=== PATIENT | male | born 1940 | race Caucasian/White ===

== ENCOUNTER 2017-08-23 12:11 | Inpatient (IN) ==
[2017-08-23] MEDS ORDERED: ASPIRIN PO STA (12:16)
--- NOTE | 2017-08-23 12:27 | EKG Report ---
Test Performed on : 08/23/2017 12:24:19 PM Test Reason : CHEST PAIN Blood Pressure : / mmHG Vent. Rate : 111 BPM Atrial Rate : 113 BPM P-R Int : 000 ms QRS Dur : 132 ms QT Int : 398 ms P-R-T Axes : 000 -63 -01 degrees QTc Int : 541 ms Atrial fibrillation. with rapid ventricular response. with premature ventricular or aberrantly condu cted complexes. Right bundle branch block Left anterior fascicular block Bifascicular block Minimal voltage criteria for LVH, may be normal variant Abnormal ECG When compared with ECG of 26-JUL-2015 12:54, Atrial fibrillation. has replaced Sinus rhythm. Vent. rate has increased BY 48 BPM T wave inversion now evident in Anterior leads Unconfirmed Result
--- NOTE | 2017-08-23 12:30 | PROVIDER DOCUMENTATION ---
HPI-General Adult - General Chief Complaint: Shortness of Breath Stated Complaint: SOB,NOT SLEEPING BECAUSE OF AFIB Time Seen by Provider: 08/23/17 12:27 Source: patient Allergies/Adverse Reactions: Patient Allergies Allergy/AdvReac Type Severity Reaction Status Date / Time No Known Allergies Allergy Verified 08/23/17 12:24 Home Medications: Home Medication List Medication Instructions Recorded Confirmed Last Taken Type ATORVAstatin [Lipitor] 40 mg 08/23/17 Unknown History Allopurinol 08/23/17 Unknown History Aspirin [Aspirin EC] 81 mg 08/23/17 Unknown History Celecoxib [Celebrex] 08/23/17 Unknown History Docusate Sodium [Colace] 100 mg 08/23/17 Unknown History Gabapentin 08/23/17 Unknown History Lisinopril/Hydrochlorothiazide 1 dose 08/23/17 Unknown History [Lisinopril-Hctz 20-25 mg Tab] Metoprolol Succinate E.r. [Toprol 50 mg 08/23/17 Unknown History Xl] Metoprolol Succinate E.r. [Toprol 100 mg 08/23/17 Unknown History Xl] Warfarin [Coumadin] 08/23/17 Unknown History - History of Present Illness -Gen Adult Nature of Presenting Problems: Pt c/o increasing SOB and increased heart rate. 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 Location of Pain/Injury: reports: none Pain Radiation: reports: no radiation Quality of Pain: reports: none Severity: reports: moderate Onset/Duration: reports: gradual, 3 days ago Timing: reports: still present, getting worse Context/Activities at Onset: reports: light activity Modifying Factors: improves with: nothing Associated Symptoms: reports: shortness of breath Similar Symptoms Previously?: Yes Recently seen or treated by another doctor?: Yes Review of Systems - Adult - REVIEW OF SYSTEMS - ADULT Constitutional: reports: other (insomnia) Eyes: reports: no symptoms reported Ears, Nose, Mouth & Throat: reports: no symptoms reported Cardiovascular: reports: edema, irregular heart rate. denies: chest pain Respiratory: reports: dyspnea on exertion, shortness of breath. denies: cough, wheezing Gastrointestinal: reports: no symptoms reported Genitourinary: reports: no symptoms reported Psychiatric: reports: no symptoms reported Past History - Adult - PAST MEDICAL HISTORY-ADULT Review of Records: reports: Old Records Reviewed, Nursing Assessment Review, Medications Reviewed Cardiovascular: reports: cardiac disease, A-Fib Physical Exam-General - PHYSICAL EXAM-ADULT Initial Vital Signs Reviewed: Yes - CONSTITUTIONAL General Appearance: appears well, alert, mild distress - EYES Eyes: PERRL/EOMI, pink conjunctivae - HEAD, EARS, NOSE, MOUTH & THROAT HENMT: normocephalic/atraumatic, moist mucous membranes - NECK Neck: full range of motion, supple. negative: carotid bruit - RESPIRATORY Respiratory: lungs clear, normal breath sounds, no accessory muscle use. negative: respiratory distress, decreased breath sounds, accessory muscle use, crackles, rales, rhonchi, stridor, wheezing - CARDIOVASCULAR Cardiovascular: normal peripheral pulses, tachycardia, irregularly irregular, other (pedal edema 2+ pitting) - GASTROINTESTINAL (ABDOMEN) Abdominal Exam: normal bowel sounds, non tender, soft - LYMPHATIC Lymphatic: no adenopathy - MUSCULOSKELETAL Back Exam: normal inspection Extremity: normal range of motion, non-tender, normal gait, normal inspection, pedal edema, other (right leg edema d/t previous trauma right hand deformity). negative: calf tenderness Peripheral Pulses: radial (R): 2+, radial (L): 2+, dorsalis-pedis (R): 1+, dorsalis-pedis (L): 1+ - SKIN Integumentary: normal color, warm/dry - NEUROLOGIC Neurologic: grossly normal - PSYCHIATRIC Psych/Mental Status: normal mood/affect Progress - PLAN OF CARE/RESULTS Progress/Plan/Lab Results: Vital Signs - 8 hr 08/23/17 12:17 Temperature 97.8 F Pulse Rate 116 H Respiratory Rate 26 H Blood Pressure 138/113 O2 Sat by Pulse Oximetry 97 Orders Category Date Time Status Cardiac Monitoring DIRECTED Care 08/23/17 12:16 Active Saline Loc NOW Care 08/23/17 12:16 Active CHEST-2 VIEWS [RAD] Stat Exams 08/23/17 12:16 Ordered CBC WITH ELECTRONIC DIFF [HEME] Stat Lab 08/23/17 12:16 Ordered CK PROFILE [SP CHEM] Stat Lab 08/23/17 12:16 Ordered COMPREHENSIVE METABOLIC PANEL [CHEM] Stat Lab 08/23/17 12:16 Ordered MAGNESIUM [CHEM] Stat Lab 08/23/17 12:16 Ordered PRO B-NATRIURETIC PEPTIDE Stat Lab 08/23/17 12:16 Ordered PROTIME WITH INR PL [COAG] Stat Lab 08/23/17 12:[address] [COAG] Stat Lab 08/23/17 12:16 Ordered TROPONIN T Stat Lab 08/23/17 12:16 Ordered Aspirin Med 08/23/17 12:16 Discontinued 325 mg PO STAT STA EKG [EKG] Stat Ther 08/23/17 12:16 Draft Result Diagrams: 08/23/17 12:32 08/23/17 12:32 - CONSULTS/PCP/HOSPITALIST Notification #1 *Consult/PCP/Hospitalist*: agustina Time Discussed: 15:22 Consult Disposition: Will see in ED Departure - Departure Date of Disposition Decision: 08/23/17 Time of Disposition Decision: 15:14 DIAGNOSIS: Shortness of breath A-fib Qualifiers: Atrial fibrillation type: chronic Qualified Code(s): I48.2 - Chronic atrial fibrillation CHF (congestive heart failure) Qualifiers: Congestive heart failure type: unspecified congestive heart failure type Congestive heart failure chronicity: unspecified congestive heart failure chronicity Qualified Code(s): I50.9 - Heart failure, unspecified Disposition: ADMITTED INPATIENT 09 Certified Medical Emergency: Emergent Condition: Good Referrals and Follow-Ups: Ritchie Montez MD [Primary Care Provider] - - Critical Care Note This patient required my direct & personal management of CC.: No Attestation - Physician/ BRADEN Attestation Patient care was provided by Advanced Practice Provider:: Yes Advanced Practice Provider:: Kinsey Ferraro Advanced Practice Provider documentation review:: The Mid-level provider documentation, treatment plan and medical decision making was reviewed by the physician who agrees with all treatment and medical decision making by the [facility]. The physician spent face to face time with patient:: Yes Advanced Practice Provider documentation review:: Supervising physician onsite and consulted in the evaluation and care of this patient. The physician did have a face to face encounter with the patient.
[2017-08-23 12:35] LABS: MANUAL DIFF NEEDED? NO
[2017-08-23 12:37] LABS: BASO% 0.4 % (0.0-0.8); EOS% 1.4 % (0.0-10.0); HEMATOCRIT 38.3 % (42.0-52.0); HEMOGLOBIN 12.6 g/dL (14.0-18.0); IMM GRAN# 0.01 X1000 (0.0-0.04); IMM GRAN% 0.1 % (0.0-0.5); LYMPH# 1.82 X1000 (1.2-3.4); LYMPH% 24.6 % (20.5-51.1); MCH 30.7 PG (27-31); MCHC 32.9 g/dL (33-37); MCV 93.2 FL (81-99); MONO# 0.71 X1000 (0.11-0.59); MONO% 9.6 % (1.7-9.3); MPV 10.7 FL (7.4-10.4); NEUT% 63.9 % (42.2-75.2); PLT 189 X1000 (130-400); RBC 4.11 XMIL (4.7-6.1)
[2017-08-23 12:53] LABS: ALBUMIN 4.2 g/dL (3.5-5.0); CALCIUM 9.2 mg/dL (8.8-10.2); MAGNESIUM 1.7 mg/dL (1.5-2.7); POTASSIUM 3.9 mmol/L (3.5-5.1); TOTAL BILIRUBIN 0.9 mg/dL (0.20-1.00); TOTAL PROTEIN 7.5 g/dL (6.3-8.3)
[2017-08-23 12:54] LABS: INR 2.31 (0.86-1.15); PROTIME 27.2 Seconds (12.1-15.5); PTT PL 39.6 Seconds (22.6-43.9)
--- NOTE | 2017-08-23 13:11 | Diag Imaging Result Doc PS360 ---
EXAM: CHEST-2 VIEWS HISTORY: CP TECHNIQUE: Two views COMPARISON: 11/28/2015 FINDINGS: The lungs are well expanded. The heart is mildly prominent. The vessels are not distended. There are no infiltrates. No pleural effusions. There is a granuloma in the lower right lung. No free air beneath the diaphragm. IMPRESSION: Mildly prominent heart, otherwise negative exam Electronically signed by Papa Wheeler 08/23/2017 1:09 PM
[2017-08-23 13:24] LABS: CK INDEX 3.1 (0.0-2.5); CK-MB 7.21 ng/mL (0.0-5.0)
[2017-08-23] MEDS ORDERED: LASIX IV ONE ×2 (13:35→15:32)
[2017-08-23] MEDS ORDERED: KLOR-CON PO ONE (13:35)
[2017-08-23] MEDS ORDERED: ZOFRAN PO PRN (15:33)
[2017-08-23] MEDS ORDERED: TYLENOL PO PRN (15:33)
[2017-08-23] MEDS ORDERED: CELEBREX PO PRN (19:05)
[2017-08-23] MEDS ORDERED: FLONASE NAS PRN (19:05)
[2017-08-23] MEDS ORDERED: NEURONTIN PO SCH (21:00)
[2017-08-23] MEDS ORDERED: COLACE PO SCH (21:00)
[2017-08-23] MEDS ORDERED: COUMADIN PO SCH (21:00)
[2017-08-23] MEDS ORDERED: LIPITOR PO SCH (21:00)
[2017-08-24 08:44] VITALS: BP 142/96
[2017-08-24] MEDS ORDERED: KLOR-CON PO SCH (09:00)
[2017-08-24] MEDS ORDERED: LASIX PO SCH (09:00)
[2017-08-24] MEDS ORDERED: HYDROCHLOROTHIAZIDE PO SCH (09:00)
[2017-08-24] MEDS ORDERED: TOPROL XL PO SCH (09:00)
[2017-08-24] MEDS ORDERED: ZYLOPRIM PO SCH (09:00)
[2017-08-24] MEDS ORDERED: PRINIVIL PO SCH (09:00)
--- NOTE | 2017-08-24 20:03 | HISTORY AND PHYSICAL ---
CHIEF COMPLAINT: Shortness of breath. HISTORY OF PRESENT ILLNESS: Patient is a 77-year-old male who presented to [facility] Emergency Department secondary to increased shortness of breath, increased work of breathing. He notes that he has been tired and fatigued. He has not been feeling well. He states his legs have been swelling more lately. He denies any chest pain, but notes that he has been having palpitations. States that he has known history of atrial fibrillation. He states that his right lower extremity has been swelling off and on for the last several months since he has had an infection in that leg. Denies any recent injury. ALLERGIES: No known drug allergies. MEDICATIONS: Lipitor 40, allopurinol, aspirin 81, Celebrex, Colace, lisinopril HCT 20/25, metoprolol 50 in the a.m., 100 in p.m., Coumadin. REVIEW OF SYSTEMS: Patient notes that he has had decreased activity over the last couple of days secondary to shortness of breath, fatigue. States his right lower extremity has been swelling more. Denies any headaches, blurry vision. Denies any change in vision. Denies any focalized numbness, tingling, weakness in his extremities. States he is having difficulty breathing and was unable to get comfortable at night, but does note that even sitting up did not really alleviate his shortness of breath. Denies any diarrhea, constipation, melena, hematochezia. He denies any weight loss or weight gain, but also admits that he does not typically check his weight. PAST MEDICAL HISTORY: History of atrial fibrillation. Known coronary artery disease. FAMILY HISTORY: Noncontributory. No family history of atrial fibrillation. SOCIAL HISTORY: Patient is . Lives at home. 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 Denies alcohol or illicit drug use. OBJECTIVE: Vital Signs: Reviewed. Temperature 97 degrees, pulse 116-130 in the ER, blood pressure 138/113, saturation 97% on room air. General: Patient is awake, alert. He is currently in no respiratory distress, but he is somewhat ill appearing and appears uneasy. HEENT: Normocephalic, atraumatic. Neck: Supple. No apparent JVD. CARDIOVASCULAR: Irregular rate, irregular rhythm. Chest: Decreased breath sounds bilaterally, but no appreciable crackles. No wheezing. Nonlabored. Abdomen: Soft, nondistended. Extremities: Has 2+ edema in right lower extremity, trace edema in the left lower extremity. Neurologic: No focal changes. Skin: Warm and dry. No rashes. LABORATORIES: Reviewed. ASSESSMENT: 1. Elevated D-dimer. Certainly could have a pulmonary emboli, buy he currently is actively being treated. His INR is greater than 2. 2. Atrial fibrillation with rapid ventricular response. Likely the cause of his shortness of breath. 3. Pulmonary edema. He does not have any history of congestive heart failure. I feel as though this is simply filling effect secondary to atrial fibrillation, RVR. Hypertension. 4. Others. PLAN: We will admit patient to the hospital. Continue to follow. He was given Lasix IV. We will repeat one more dose of Lasix IV and follow. Hopefully he can be discharged home in the next day or 2 if his symptoms resolve. cc: Eulalio Shultz MD
[2017-08-24] MEDS ORDERED: COUMADIN PO SCH (21:00)
--- NOTE | 2017-08-25 12:37 | DISCHARGE SUMMARY ---
ADMISSION DATE: 08/23/2017 DISCHARGE DATE: 08/24/2017 DISCHARGE DIAGNOSES: 1. Right lower extremity edema resolved. 2. Elevated D-dimer in a patient with a history of atrial fibrillation and I believe a history of clots. Currently, he is therapeutic with an INR at 2.5. He is on Coumadin at home. We will continue this. 3. Atrial fibrillation currently back to rate control. 4. Hypertension. CONSULTATIONS: None. PROCEDURES: None. BRIEF HOSPITAL COURSE: The patient was admitted to the hospital as noted on the HPI. Treated in the usual fashion. Placed on IV Lasix. He thankfully had no further complications. On discharge, he is awake, alert. He is in no distress. He is able to ambulate without any difficulty and therefore he will be discharged home. DISPOSITION: No changes were made on his home medications. Prescription for Lasix and potassium was given as well as instructions on how and when to use. DISCHARGE INSTRUCTIONS: He will follow up with primary care Dr. Montez this week because he already has an appointment. Instead of staying in the hospital over the weekend to get an echo, this will be done as an outpatient. cc: Eulalio Shultz MD
== END 2017-08-24 10:45 | disposition home or self-care (01) ==
LOC: P.ED 12:11 → P.MEDSURG 12:12
PROVIDERS: ATTEND Family Medicine